=== PATIENT | male | born 2000 | race African-American/Black ===

== ENCOUNTER 2022-02-23 06:11 | Emergency (ER) | payer OTHER ==
[~2022-02-23] VITALS: Ht 175.3 cm; Wt 63.7 kg
[2022-02-23 07:38] VITALS: BP 116/66
[2022-02-23] MEDS ORDERED: KETOROLAC TROMETH 60MG/2ML VIAL IM ONE (07:45)
[2022-02-23] MEDS ORDERED: IBUP800T27 PO (08:13)
== END 2022-02-23 08:22 | disposition home or self-care (01) ==
LOC: ER 06:11
DX: S43.004A Unspecified dislocation of right shoulder joint, initial encounter (principal); X58.XXXA Exposure to other specified factors, initial encounter; Y93.84 Activity, sleeping; Y92.89 Other specified places as the place of occurrence of the external cause; Y99.8 Other external cause status
CPT/HCPCS: 23650; 73020; 73030; 96372; 99284; J1885

== ENCOUNTER 2023-04-25 14:32 | Emergency (ER) | payer OTHER ==
[~2023-04-25] VITALS: Ht 175.3 cm; Wt 69.1 kg
[~2023-04-25 14:32] MED LIST: IBUP-1456 PO
[2023-04-25] MEDS: DexAMETHasone SOD PHOS 10MG/1ML VIAL INJ IM ONE (15:12)
[2023-04-25] MEDS ORDERED: ALBU108A5 IN (15:33)
[2023-04-25] MEDS: IPRATROPIUM BROM 0.5 MG/2.5ML INH SOL NEB ONE (15:48)
[2023-04-25] MEDS: ALBUTEROL SULF 2.5 MG/0.5ML(0.5%) NEB SOLN NEB ONE (15:48)
[2023-04-25 16:46] VITALS: BP 149/62; PULSE 66; RESP 18; O2SAT 99
== END 2023-04-25 17:00 | disposition home or self-care (01) ==
LOC: ER 14:32
DX: J45.901 Unspecified asthma with (acute) exacerbation (principal)
CPT/HCPCS: 71046; 94640; 96372; 99283; J1100; J7644

== ENCOUNTER 2023-05-08 21:16 | Emergency (ER) | payer OTHER ==
[~2023-05-08] VITALS: Ht 175.3 cm; Wt 68.0 kg
[~2023-05-08 21:16] MED LIST changes: +ALBU108A5 IN
[2023-05-09 00:30] VITALS: BP 123/75; PULSE 85; RESP 16; O2SAT 100
== END 2023-05-09 00:36 | disposition home or self-care (01) ==
LOC: ER 21:16
DX: S43.004A Unspecified dislocation of right shoulder joint, initial encounter (principal); J45.909 Unspecified asthma, uncomplicated; X58.XXXA Exposure to other specified factors, initial encounter; Y93.89 Activity, other specified; Y92.89 Other specified places as the place of occurrence of the external cause; Y99.8 Other external cause status
CPT/HCPCS: 23650; 73030

== ENCOUNTER 2023-10-08 09:37 | Emergency (ER) | payer OTHER ==
[~2023-10-08] VITALS: Ht 175.3 cm; Wt 68.8 kg
[2023-10-08 11:12] VITALS: BP 122/73; PULSE 64; RESP 16; TEMP 97.7; O2SAT 99
[2023-10-08] MEDS: IBUPROFEN 800 MG TAB PO ONE (13:33)
== END 2023-10-08 16:49 | disposition left against medical advice (07) ==
LOC: ER 09:43
DX: M79.645 Pain in left finger(s) (principal); J45.909 Unspecified asthma, uncomplicated; Z79.899 Other long term (current) drug therapy; W22.8XXA Striking against or struck by other objects, initial encounter; Y93.89 Activity, other specified; Y92.89 Other specified places as the place of occurrence of the external cause; Y99.8 Other external cause status

== ENCOUNTER 2024-02-16 11:45 | Emergency (ER) | payer OTHER ==
[~2024-02-16] VITALS: Ht 175.3 cm; Wt 78.0 kg
[2024-02-16 12:19] VITALS: BP 135/98; PULSE 69; RESP 20; TEMP 98.6; O2SAT 98
--- NOTE | 2024-02-16 12:41 | DVH ---
CHEST RADIOGRAPH Indication: COUGH Technique: Single frontal view of the chest was obtained COMPARISON: None FINDINGS: Lines and Tubes: None Lungs: Clear Pleura: No effusion. No pneumothorax. Cardiomediastinal contours: Unremarkable Bones: Unremarkable IMPRESSION: No acute disease.
--- NOTE | 2024-02-16 12:45 | ED.PDOC ---
SOB-HPI HPI Comments A 23-YEAR-OLD MALE PRESENTS WITH A CHIEF COMPLAINT OF COUGH X2 DAYS. PATIENT STATES THAT HE HAS HAD ANY UNPRODUCTIVE COUGH FOR THE LAST 2 DAYS. PATIENT'S THROAT IS RED UPON EVALUATION. PATIENT ENDORSES THAT HE DOES SMOKE CIGARETTES AND MARIJUANA. PATIENT DENIES ANY EAR PAIN AND FEVER. PATIENT DENIES ABDOMINAL PAIN, CHEST PAIN, HEADACHE, SHORTNESS OF BREATH, NAUSEA, VOMITING OR DIARRHEA. NO OTHER SYMPTOMS OR MODIFYING FACTORS PRESENT AT THIS TIME. Chief Complaint: Cough Time Seen by MD: 12:17 Reviewed notes: Nurses Notes, Medications, Allergies Information Source: Patient Mode of Arrival: Ambulatory Severity: Moderate Timing: Days Duration: Since onset Context: At Rest PE Risk Factors: None History of: None Prehospital treatment: None Modifying Factors: Nothing Associated Signs and Symptoms: Cough If cough with SOB: Productive Past Medical History PAST MEDICAL HISTORY: Asthma Surgical History: Denies all surgeries Family History Family History: Reviewed,noncontributory to illness Social History Smoker: Non-Smoker Alcohol: Denies ETOH Use Drugs: Denies Drug Use Lives In: Home Constitutional: denies: chills, diaphoresis, fatigue, fever, malaise, sweats, weakness, others EENTM: reports: nose congestion; denies: blurred vision, double vision, ear bleeding, ear discharge, ear drainage, ear pain, ear ringing, eye pain, eye redness, hearing loss, mouth pain, mouth swelling, nasal discharge, nose bleeding, nose pain, photophobia, tearing, throat pain, throat swelling, voice changes, others Respiratory: reports: cough; denies: hemoptysis, orthopnea, SOB at rest, shortness of breath, SOB with excertion, stridor, wheezing, others Cardiovascular: denies: chest pain, dizzy spells, diaphoresis, Dyspnea on exertion, edema, irregular heart beat, left arm pain, lightheadedness, palpitations, PND, syncope, others Gastrointestinal: denies: abdomen distended, abdominal pain, blood streaked bowels, constipated, diarrhea, dysphagia, difficulty swallowing, hematemesis, melena, nausea, poor appetite, poor fluid intake, rectal bleeding, rectal pain, vomiting, others Genitourinary: denies: burning, dysuria, flank pain, frequency, hematuria, incontinence, penile discharge, penile sore, pain, testicle pain, testicle swelling, urgency, others Neurological: denies: dizziness, fainting, headache, left sided numbness, left sided weakness, numbness, paresthesia, pre-existing deficit, right sided numbness, right sided weakness, seizure, speech problems, tingling, tremors, weakness, others Musculoskeletal: denies: back pain, gout, joint pain, joint swelling, muscle pain, muscle stiffness, neck pain, others Integumetry: denies: bruises, change in color, change in hair/nails, dryness, laceration, lesions, lumps, rash, wounds, others Allergic/Immunocompromised: denies: Difficulty Healing, Frequent Infections, Hives, Itching, others Hematologic/Lymphatic: denies: anemia, blood clots, easy bleeding, easy bruising, swollen glands, others Endocrine: denies: excessive hunger, excessive sweating, excessive thirst, excessive urination, flushing, intolerance to cold, intolerance to heat, un explained weight gain, unexplained weight loss, others Psychiatric: denies: anxiety, bipolar disorder, depression, hopeless, panic disorder, schizophrenia, sleepless, suicidal, others All Other Systems: Reviewed and Negative Physical Exam General Appearance: No Apparent Distress, Normal HEENT: Normal ENT Inspection, PERRL/EOMI, Pharynx Normal, TMs Normal Neck: Full Range of Motion, Non-Tender, Normal, Normal Inspection Respiratory: Chest Non-Tender, Expiration, No Accessory Muscle Use, No Re spiratory Distress, Rhonchi Cardiovascular: No Edema, No JVD, No Murmur, No Gallop, Normal Peripheral Puls es, Regular Rate/Rhythm Breast Exam: Deferred Gastrointestinal: No Organomegaly, Non Tender, No Pulsatile Mass, Normal Bowel Sounds, Soft Genitalia: Deferred Pelvic: Deferred Rectal: Deferred Extremities: No calf tenderness, Normal capillary refill, Normal inspection, Normal range of motion, Non-tender, No pedal edema Musculoskeletal : Apperance: Normal Neurologic: Alert, 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 Was a procedure done?: No Differential Dx Differential Diagnosis: Bronchitis, Pneumonia, Pharyngitis, URI X-Ray, Labs, Meds, VS Vital Signs Date Time Temp Pulse Resp B/P (MAP) Pulse Ox O2 Delivery O2 Flow Rate FiO2 02/16/24 12:19 69 20 98 Room Air 02/16/24 12:19 98.6 69 20 135/98 (110) 98 98.6 02/16/24 11:57 98.6 69 20 135/98 (110) 98 02/16/24 11:57 98 98 Room Air* 0 21 PATIENT: REGGIE ANDINOT: [id number]: [id number] : 2000 LOC: ER ROOM / BED: / AGE / SEX: 23 / M ADM STATUS: REG ER SERVICE 1220 ORDERING PHYSICIAN: JOSE CAPUTO PROCEDURE(s): CXRP - CHEST PORTABLE REASON: COUGH ORDER NUMBER(s): [id number], ACCESSION NUMBER(s): [id number] CHEST RADIOGRAPH Indication: COUGH Technique: Single frontal view of the chest was obtained COMPARISON: None FINDINGS: Lines and Tubes: None Lungs: Clear Pleura: No effusion. No pneumothorax. Cardiomediastinal contours: Unremarkable Bones: Unremarkable IMPRESSION: No acute disease. ATED BY: HO LIZARRAGA MD DICTATED DATE/TIME: 02/16/24 123 SIGNED BY: HO LIZARRAGA MD SIGNED DATE/TIME: 02/16/24 1239 X-Ray, Labs, Meds, VS Comment EXTERNAL MEDICAL RECORDS REVIEWED: [NONE] INDEPENDENT HISTORIANS: [NONE] SOCIAL DETERMINANTS OF HEALTH: [NONE] LABS ORDERED: NONE REVIEWED AND INTERPRETED RESULTS: NONE IMAGING ORDERED: CHEST X-RAY TREATMENTS ORDERED: NONE PROCEDURES PERFORMED: NONE CRITICAL CARE TIME: NONE I HAVE DISCUSSED THE PATIENT WITH THE ATTENDING PHYSICIAN DR. OROURKE AND HE AGREES WITH THE PATIENT'S PLAN OF CARE AND DISPOSITION. GIVEN THE HISTORY AND PRESENT ILLNESS OF THE PATIENT, AFTER REVIEWING LABS, IMAGING, AND COURSE OF TREATMENT ADMINISTERED DURING THEIR ED VISIT, THERE IS LOW SUSPICION FOR RED FLAG FINDINGS. BASED ON HISTORY OF PRESENT ILLNESS, AND PHYSICAL EXAM, PATIENT WILL BE DISCHARGED HOME. DISCUSSED PLAN FOR DISCHARGE HOME WITH RX []. MEDICATION WARNINGS GIVEN. SHARED DECISION MAKING: DISCUSSED WITH PATIENT THAT THEIR WORKUP WAS NORMAL. PATIENT INSTRUCTED TO FOLLOW UP WITH PRIMARY CARE PROVIDER IN 1-2 DAYS FOR RE- EVALUATION OF SYMPTOMS. PATIENT VERBALIZES UNDERSTANDING TO RETURN TO ED FOR NEW OR WORSENING SYMPTOMS OR IF FOLLOW UP WITH PCP CANNOT BE OBTAINED. PATIENT FEELS COMFORTABLE GOING HOME AT THIS TIME. ALL QUESTIONS ADDRESSED AT TIME OF DISCHARGE. Time of 1ST Reevaluation: 12:55 Reevaluation 1ST: Improved Patient Education/Counseling: Diagnosis, Treatment, Prognosis Family Education/Counseling: Diagnosis, Treatment, Need For Follow Up Medical Screening: No EMC Exist At This Time Departure 1 Departure Time of Disposition: 13:00 Impression: Primary Impression: Acute bronchitis Qualified Codes: J20.9 - Acute bronchitis, unspecified Disposition: HOME / SELF CARE / HOMELESS Condition: Stable Additional Instructions: FOLLOW UP WITH YOUR PCP IN 1-2 DAYS, RETURN TO THE ER IF YOUR SYMPTOMS WORSEN. e-Prescriptions Promethazine-Dm (Promethazine Dm 6.25-15 mg/5Ml) 1 Ashley Ashley 5 ML PO TID, #160 ML Prov: JOSE CAPUTO 02/16/24 Cephalexin Monohydrate (Cephalexin) 500 Mg Cap 1 CAP PO QID, #28 CAP Prov: JOSE CAPUTO 02/16/24 Discharged With: Self Critical Care Note Critical Care Time?: No Stability Stability form required: No Heart Score Heart Score: Heart Score Response (Comments) Value History N/A 0 EKG N/A 0 Age N/A 0 Risk Factors N/A 0 Troponin N/A 0 Total 0 I personally scribed for JOSE CAPUTO ([email or web address]) on 02/16/24 at 12:45. Electr onically submitted by Boo Javier ([email or web address]). JOSE CAPUTO Feb 16, 2024 12:45
[2024-02-16] MEDS ORDERED: CEPH500C PO (12:47)
[2024-02-16] MEDS ORDERED: PROM1SOL4 PO (12:47)
== END 2024-02-16 12:49 | disposition home or self-care (01) ==
LOC: ER 11:45
DX: J20.9 Acute bronchitis, unspecified (principal); J45.909 Unspecified asthma, uncomplicated
CPT/HCPCS: 71045

== ENCOUNTER 2025-02-02 22:23 | Emergency (ER) | payer OTHER ==
[~2025-02-02] VITALS: Ht 172.7 cm; Wt 62.5 kg
[~2025-02-02 22:23] MED LIST changes: +CEPH500C PO; +PROM1SOL4 PO
[2025-02-02 22:33] VITALS: BP 133/85; PULSE 81; RESP 18; TEMP 98.5; O2SAT 99
== END 2025-02-03 00:04 | disposition left against medical advice (07) ==
LOC: ER 22:23
DX: R06.02 Shortness of breath (principal); Z79.899 Other long term (current) drug therapy